=== PATIENT | male | born 1965 | race Caucasian/White ===

== ENCOUNTER 2025-01-01 12:19 | Inpatient (IN) ==
--- NOTE | 2025-01-01 12:36 | ED Physician Documentation ---
History of Present Illness Stated complaint Stated Complaint: FALL/KNEE INJ Chief complaint Chief Complaint: General Additonal information Additional information: This is a very nice 59-year-old gentleman who presents after a fall from a floor truss. 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 He fell to the ground onto his left side hitting his left hip shoulder and left knee. He did not hit his head or lose consciousness. He tried to get up but was unable to bear weight due to pain in the left hip. At rest it is not painful but with weightbearing it is painful. He also states his left arm is painful with attempted range of motion. Patient states that he is generally healthy at baseline, he denies any known medical conditions, is not on any anticoagulation. Last p.o. intake 2 to 3 hours ago. This was a work related injury. [place] Coma Scale Assess Eye opening: Spontaneous Verbal response: Oriented Motor response: Obeys Commands Total score: 15 Meds/Allgy Home Medications Ambulatory Orders Medication Instructions Recorded Confirmed metoprolol succinate PO 01/01/25 Allergies Allergies Allergy/AdvReac Type Severity Reaction Status Date / Time No Known Drug Allergies Allergy Verified 01/01/25 12:28 PFSH Active Problems All Active Problems (Updated 01/01/25 @ 13:37 by JAYY Ventura) Injury resulting from fall from height (Acute) Femoral neck fracture (Acute) Closed left hip fracture (Acute) Medical History Medical History (Updated 01/01/25 @ 13:37 by JAYY Ventura) Hypercholesteremia Hypertension Social History Social History (Updated 01/01/25 @ 12:31 by Deborah Hdz RN) Smoking Status: Never smoker Living arrangement: At home Relationship: Do you feel safe in your home environment?: Yes Suffered physical, verbal, emotional, or financial abuse?: No Frequency: Weekly Substance Use: denies use POLST Patient has POLST: No Exam Exam Vital Signs: Vital Signs x48h Temp Pulse Resp BP Pulse Ox 01/01/25 12:25 36.9 C 54 L 18 128/80 95 Constitutional normal general appearance, no apparent distress, average body habitus, no limitations and alert HENMT normocephalic and head/scalp atraumatic Eyes PERRL and EOMs intact bilaterally Chest inspection of chest normal and palpation of chest normal Respiratory breath sounds equal bilaterally, normal respiratory effort and no retractions Cardiovascular normal heart rate noted, regular rhythm noted and peripheral pulses 2+ throughout Gastrointestinal abdomen normal to inspection, abdomen soft to palpation and nondistended Back/Pelvis spine normal to inspection, no thoracic spine tenderness and no lumbar spine tenderness Extremities There is mild to contusion of the left knee with normal flexion extension, no pain with palpation. There is no pain with palpation of the left hip pain no obvious deformity but he is not able to bear weight as this induces pain. Similarly, no pain with palpation of the left shoulder but unable to raise arm overhead and limited strength in the left shoulder. No clavicle pain Psychiatry oriented x3 Skin skin color normal and no rash Results Vitals Vitals: Vital Signs - 24 hr 01/01/25 12:25 Temperature 36.9 C Temperature Source Temporal Artery Scan Pulse Rate 54 L Respiratory Rate 18 Blood Pressure 128/80 O2 Saturation 95 O2 Source Room air Pain Intensity 4 Oxygen O2 Source Room air Rads (name of study) hip, shoulder, knee xr: Relevant Findings:: Final report received PD Medical Decision Making ED course Complexity details: reviewed results, d/w patient and d/w strategic planning consultant ED course: This is a very nice 59-year-old gentleman who fell from a floor chest today as described in HPI landed onto his left side and presented with left hip knee and shoulder pain. Patient is in no distress on exam, afebrile nontoxic and well- appearing. He has no reproducible pain with palpation however is not able to bear weight in the hip and I was concerned for possible fracture dislocation. We obtained images of the left hip knee and shoulder. There is a impacted fracture of the left femoral neck as well as a fracture of the left shoulder greater tuberosity. There is patellar subluxation he has good range of motion of the knee however. There is a mild cortical irregularity of the lateral femoral condyle only seen on one view. This could be an avulsion injury. Patient this pain is more in the medial left knee, I think this is less likely but would be treated supportively at this point. I have discussed the case with jesse Arevalo, who recommended admission to medical service n.p.o. he would take the patient to the OR this weekend. I have spoken with who very kindly agreed to admit this patient.amal Discharge Plan Discharge Patient Disposition: 66 [facility] DC/Xfer Clinical Impression: Femoral neck fracture, Injury resulting from fall from height
--- NOTE | 2025-01-01 13:35 | XRAY Report ---
PROCEDURE: XR Hip w/Pelvis 2-3V LT INDICATIONS: fall TECHNIQUE: 3 views of the hip were acquired. COMPARISON: None. FINDINGS: Bones: Nondisplaced intertrochanteric lucency seen on AP view. Soft tissues obscure this region on lateral. Soft tissues: No suspicious soft tissue calcifications or masses. IMPRESSION: Poorly visualized but likely nondisplaced intertrochanteric fracture. Reviewed by: Sahnnon Ya MD on 01/01/2025 1:33 PM PDT Approved by: Shannon Ya MD on 01/01/2025 1:33 PM PDT Station ID: [id number]
--- NOTE | 2025-01-01 13:36 | XRAY Report ---
PROCEDURE: XR Knee 3V LT INDICATIONS: fall TECHNIQUE: 3 views of the knee(s) were acquired. COMPARISON: None. FINDINGS: Bones: There is marked lateral subluxation of the patella. Cortical irregularity at the superior aspect of the lateral femoral condyle. Soft tissues: Mild knee joint effusion. No suspicious soft tissue calcifications or masses. IMPRESSION: Marked patellar subluxation without visualized fracture. Mild cortical irregularity at the lateral femoral condyle only seen on one view. Recommend correlation to point tenderness as avulsion injury cannot be excluded. Reviewed by: Shannon Ya MD on 01/01/2025 1:35 PM PDT Approved by: Shannon Ya MD on 01/01/2025 1:35 PM PDT Station ID: [id number]
--- NOTE | 2025-01-01 13:37 | HISTORY & PHYSICAL EXAMINATION ---
Chief Complaint Chief Complaint Chief Complaint: Fall at work History of Present Illness Admitted From Admitted From:: Home History Obtained From Records Reviewed: EMR History obtained from: Patient Exam Limitations: None History of Present Illness HPI Comment/Other: Patient is a 59-year-old male with a history of hypertension, hyperlipidemia who presents after a fall at work. 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 He fell directly on his left side. He immediately felt pain in his left shoulder, left hip, as well as his left knee. Most of the pain is concentrated in his left hip. He was unable to get up. As such, EMS was called. He denies any lightheadedness, dizziness, palpitations, chest pain prior to falling. He has had surgery on his left knee before, an arthroscopy. He has never had any adverse effects to anesthesia. He has no cardiac problems that he knows of. He has between insurances right now so he does not have a primary care provider that he is currently seeing. In the ED, his heart blood pressure was 128/80, heart rate was 54, he was afebrile, saturating 95% on room air, with a respiratory rate of 18. Hip x-ray revealed nondisplaced intertrochanteric fracture of the left side. Knee x-ray shows patellar subluxation without visualized fracture, the lateral femoral condyle shows mild irregularity, avulsion injury cannot be excluded. The shoulder x-ray shows minimally displaced greater tuberosity fracture. Orthopedic surgery was consulted by the emergency room, they are planning to operate. Meds/Allgy Home Medications Ambulatory Orders Medication Instructions Recorded Confirmed metoprolol succinate PO 01/01/25 Allergies Allergies Allergy/AdvReac Type Severity Reaction Status Date / Time No Known Drug Allergies Allergy Verified 01/01/25 12:28 PFSH Active Problems All Active Problems (Updated 01/01/25 @ 14:54 by Мария Espinoza MD) Fracture of greater tuberosity of humerus (Acute) Patellar subluxation (Acute) Injury resulting from fall from height (Acute) Femoral neck fracture (Acute) Closed left hip fracture (Acute) Medical History Medical History (Updated 01/01/25 @ 14:54 by Мария Espinoza MD) Hypercholesteremia Hypertension Social History Social History (Updated 01/01/25 @ 12:31 by Deborah Hdz RN) Smoking Status: Never smoker Living arrangement: At home Relationship: Do you feel safe in your home environment?: Yes Suffered physical, verbal, emotional, or financial abuse?: No Frequency: Weekly Substance Use: denies use POLST Patient has POLST: No Review of Systems Constitutional Denies: Fatigue, Fever, Chills, Malaise, Weakness or Poor appetite Eyes Denies: Pain, Irritation, Blurry vision, Vision loss, Diplopia or Eye discomfort Ears, nose, mouth, and throat Denies: Ear pain, Hearing loss, Tinnitus, Nose bleeds, Nasal discharge, Mouth lesions, Bleeding gums or Neck pain Cardiovascular Denies: Irregular heart rate, chest pain, palpitations, edema, Syncope or shortness of breath with exertion Respiratory Denies: Shortness of breath, Cough, Sputum production or Wheezing Gastrointestinal Denies: Abdominal pain, Abdominal distention, Nausea, Vomiting, Heartburn, Diarrhea or Constipation Genitourinary Denies: Painful urination, Urinary frequency or Urinary urgency Musculoskeletal Reports: Extremity pain, Joint pain, Limited range of motion and Stiffness; Denies: Back pain, Neck pain or Extremity swelling Integumentary/Breast Denies: Rash, Itching, Dryness, Redness or Skin pain Neurological Denies: Headache, General weakness, Weakness in extremities, Numbness in extremities, Abnormal gait or Dizziness Psychiatric Denies: Depression, Anxiety, Mood swings or Panic attacks Endocrine Denies: Excessive urination, Excessive thirst or Fatigue Hematologic/Lymphatic Denies: Anemia, Easy bruising or Easy bleeding Allergic/Immunologic Denies: Hives, Tongue swelling, Facial swelling or Wheezing Exam Exam Vital Signs: Vital Signs x48h Temp Pulse Pulse Resp BP BP Pulse Ox 01/01/25 14:30 98.1 F 68 18 130/81 95 01/01/25 14:01 97.7 F 55 L 16 120/68 97 01/01/25 12:25 98.4 F 54 L 18 128/80 95 Constitutional normal general appearance, no apparent distress, average body habitus and no limitations HENMT normocephalic, head/scalp atraumatic and hearing grossly normal bilaterally Eyes PERRL, EOMs intact bilaterally and conjunctivae normal Neck/C-Spine visual inspection normal, trachea midline and cervical spine nontender Chest inspection of chest normal Respiratory breath sounds equal bilaterally, normal respiratory effort, clear to auscultation bilaterally, no wheezes, no rales and no retractions Cardiovascular normal heart rate noted, regular rhythm noted, no gallop, no rub and no murmur Gastrointestinal abdomen normal to inspection, abdomen soft to palpation, nontender to palpation and normoactive bowel sounds Genitourinary no CVA tenderness and bladder normal to palpation Back/Pelvis spine normal to inspection, no thoracic spine tenderness and no lumbar spine tenderness Extremities Left shoulder with point tenderness, left knee with small abrasion, no effusion noted. Left leg slightly externally rotated. Dorsalis pedis and posterior tibialis pulses felt. Good sensation in bilateral legs. Able to wiggle both toes. Overall range of motion limited due to pain. Neurology no movement abnormality noted and no focal motor deficit noted Psychiatry mental status grossly normal, oriented x3, thought process normal, cooperative and affect normal Skin skin color normal, no rash and no lesions Mild abrasions bilateral legs. Conclusion/Plan Problem List (1) Closed left hip fracture: Plan: Hip x-ray shows likely nondisplaced intertrochanteric fracture of left hip. Continue pain management with Tylenol, oxycodone, morphine as needed for varying levels of pain. Orthopedic surgery consulted, appreciate recommendations. N.p.o. at midnight, regular diet at this time. Qualifiers: Encounter type: initial encounter Qualified Code(s): S72.002A - Fracture of unspecified part of neck of left femur, initial encounter for closed fracture (2) Patellar subluxation: Plan: Knee x-ray shows marked patellar subluxation without fracture. See above. Qualifiers: Encounter type: initial encounter Laterality: left Qualified Code(s): S83.002A - Unspecified subluxation of left patella, initial encounter (3) Fracture of greater tuberosity of humerus: Plan: Shoulder x-ray shows minimally displaced greater tuberosity fracture. See above. Qualifiers: Encounter type: initial encounter Fracture type: closed Fracture alignment: displaced Laterality: left Qualified Code(s): S42.252A - Displaced fracture of greater tuberosity of left humerus, initial encounter for closed fracture Diagnostic Imaging Results Diagnostic Imaging Results: positive Final report reviewed Core Measures Anticipated LOS I expect patient to be DC'd or transferred within 96 hours.: Yes DVT/VTE - Prophylaxis VTE/DVT Device ordered at admit?: Yes VTE/DVT Prophylaxis med ordered at admit?: Yes
--- NOTE | 2025-01-01 13:38 | XRAY Report ---
PROCEDURE: XR Shoulder 2+V LT INDICATIONS: fall TECHNIQUE: 3 views of the shoulder were acquired. COMPARISON: None. FINDINGS: Bones: Minimally displaced lucency through the greater tuberosity. No suspicious bony lesions. No significant effusion. The glenohumeral and acromioclavicular joints are preserved. Soft tissues: No suspicious soft tissue calcifications. The visualized lungs are within normal limits. IMPRESSION: Minimally displaced greater tuberosity fracture. Reviewed by: Shannon Ya MD on 01/01/2025 1:37 PM PDT Approved by: Shannon Ya MD on 01/01/2025 1:37 PM PDT Station ID: [id number]
[2025-01-01] MEDS ORDERED: ONDANSETRON ODT 4 MG TABLET TL PRN (14:26)
[2025-01-01] MEDS: ACETAMINOPHEN 325 MG TABLET PO PRN (14:33)
[2025-01-01] MEDS: SODIUM CHLORIDE FLUSH 0.9% 10 ML SYRINGE IVP PRN (14:34)
--- NOTE | 2025-01-01 15:41 | PHARMACY PROGRESS NOTE ---
Best Possible Medication History Admit Date and Time: 01/01/25 [id number] Home Medications Medication Instructions Recorded Confirmed Type metoprolol succinate 50 mg 50 mg PO DAILY 01/01/25 History tablet,extended release 24 hr rosuvastatin 40 mg tablet 40 mg PO DAILY 01/01/2512/14 History Processed by: Pharmacy Medications reviewed in ED?: No Medication History completed: Yes Patient Interview: Completed Secondary Source(s): Pharmacy records and Insurance records [facility] Statement: As the person ultimately responsible for medication therapy, providers are able to order a medication from an existing home medication list in [facility] via the "Reconcile Routine" prior to Confirmation of that medication by patient support partner. Such practice is discouraged except when the physician, in their clinical judgment, deems that a medical need exists for a medication without regard to previous use.
--- NOTE | 2025-01-01 15:43 | PHARMACY PROGRESS NOTE ---
Best Possible Medication History Admit Date and Time: 01/01/25 [id number] Home Medications Medication Instructions Recorded Confirmed Type metoprolol succinate 50 mg 50 mg PO DAILY 01/01/25 History tablet,extended release 24 hr rosuvastatin 40 mg tablet 40 mg PO DAILY 01/01/2512/14 History Processed by: Pharmacy Medications reviewed in ED?: No Medication History completed: Yes Patient Interview: Completed Secondary Source(s): Pharmacy records and Insurance records [facility] Statement: As the person ultimately responsible for medication therapy, providers are able to order a medication from an existing home medication list in [facility] via the "Reconcile Routine" prior to Confirmation of that medication by technical support professional. Such practice is discouraged except when the physician, in their clinical judgment, deems that a medical need exists for a medication without regard to previous use.
[2025-01-01] MEDS: oxyCODONE 5 MG TABLET PO PRN (17:08)
[2025-01-01] MEDS: SODIUM CHLORIDE FLUSH 0.9% 10 ML SYRINGE IVP SCH (17:11)
[2025-01-01] MEDS: ONDANSETRON 4 MG/2 ML VIAL IVP PRN (18:18)
[2025-01-01] MEDS: MORPHINE 2 MG/ML CARPUJECT IVP PRN (18:20)
[2025-01-02 05:31] LABS: HCT - HEMATOCRIT 44.1 % (42.0-52.0); HGB - HEMOGLOBIN 14.3 g/dL (14.0-18.0); MEAN CORPUSCULAR HEMOGLOBIN 29.4 pg (27.0-31.0); MEAN CORPUSCULAR HGB CONC 32.4 g/dL (32.0-36.0); MEAN CORPUSCULAR VOLUME 90.7 fL (80.0-94.0); MEAN PLATELET VOLUME 9.3 fL (7.4-11.4); RED BLOOD COUNT 4.86 10^6/uL (4.70-6.10); RED CELL DISTRIBUTION WIDTH 12.5 % (12.0-15.0); WHITE BLOOD COUNT 10.6 x10^3/uL (4.8-10.8)
[2025-01-02 05:51] LABS: CALCIUM 8.8 mg/dL (8.5-10.3); CREATININE 0.9 mg/dL (0.6-1.3); MAGNESIUM 2.1 mg/dL (1.7-2.3)
[2025-01-02] MEDS ORDERED: BUPIVACAINE 0.25% PF 30 ML VIAL ONE (10:40)
[2025-01-02] MEDS ORDERED: VANCOMYCIN 1 GM VIAL ONE (10:40)
--- NOTE | 2025-01-02 11:09 | ANESTHESIA PROCEDURE NOTE ---
Pre-Anesthesia VS, & Labs Diagnosis Surgical Diagnosis:: left femoral neck fracture Procedure Procedure: left hemiarthroplasty Vitals Vital Signs: Temp Pulse Resp BP Pulse Ox 36.5 C 73 20 126/76 92 01/02/25 08:26 01/02/25 08:26 01/02/25 08:26 01/02/25 08:26 01/02/25 08:26 NPO NPO: >8 hours Lab Results Current Lab Results: Laboratory Tests 01/02/25 05:05: WBC 10.6, RBC 4.86, Hgb 14.3, Hct 44.1, MCV 90.7, MCH 29.4, MCHC 32.4, RDW 12.5, Plt Count 187, MPV 9.3, Sodium 135, Potassium 4.0, Chloride 103, Carbon Dioxide 25, Anion Gap 7.0, BUN 15, Creatinine 0.9, Estimated GFR (MDRD) 87 L, Glucose 123 H, Calcium 8.8, Magnesium 2.1 01/02/25 05:05 01/02/25 05:05 Meds/Allgy Home Medications Ambulatory Orders Medication Instructions Recorded Confirmed metoprolol succinate 50 mg 50 mg PO DAILY 01/01/25 tablet,extended release 24 hr rosuvastatin 40 mg tablet 40 mg PO DAILY 01/01/2512/14 Allergies Allergies Allergy/AdvReac Type Severity Reaction Status Date / Time No Known Drug Allergies Allergy Verified 01/01/25 12:28 PFS Active Problems All Active Problems (Updated 01/01/25 @ 14:54 by Мария Espinoza MD) Fracture of greater tuberosity of humerus (Acute) Patellar subluxation (Acute) Injury resulting from fall from height (Acute) Femoral neck fracture (Acute) Closed left hip fracture (Acute) Medical History Medical History (Updated 01/01/25 @ 14:54 by Мария Espinoza MD) Hypercholesteremia Hypertension Social History Social History (Updated 01/01/25 @ 12:31 by Deborah Hdz RN) Smoking Status: Never smoker Do you dip or chew tobacco?: No Do you vape?: No Living arrangement: At home Relationship: Level: Independent Do you feel safe in your home environment?: Yes Suffered physical, verbal, emotional, or financial abuse?: No Frequency: Weekly Substance Use: denies use POLST Patient has POLST: No Anesthesia Exam (Expanded) Exam General: Alert, Oriented x3, Cooperative and Mild distress Dental: WNL Mouth Opening: Greater than 4 Fingerbreadths Neck Mobility: Normal Mallampati classification: II Thyromental Distance: 4-6 cm Respiratory: Lungs clear Cardiovascular: Regular rate Exam Exam Vital Signs: Vital Signs x48h Temp Pulse Resp BP Pulse Ox 01/02/25 08:26 36.5 C 73 20 126/76 92 Plan Problem List (1) Closed left hip fracture: Plan: Hip x-ray shows likely nondisplaced intertrochanteric fracture of left hip. Continue pain management with Tylenol, oxycodone, morphine as needed for varying levels of pain. Orthopedic surgery consulted, appreciate recommendations. N.p.o. at midnight, regular diet at this time. Qualifiers: Encounter type: initial encounter Qualified Code(s): S72.002A - Fracture of unspecified part of neck of left femur, initial encounter for closed fracture (2) Patellar subluxation: Plan: Knee x-ray shows marked patellar subluxation without fracture. See above. Qualifiers: Encounter type: initial encounter Laterality: left Qualified Code(s): S83.002A - Unspecified subluxation of left patella, initial encounter (3) Fracture of greater tuberosity of humerus: Plan: Shoulder x-ray shows minimally displaced greater tuberosity fracture. See above. Qualifiers: Encounter type: initial encounter Fracture type: closed Fracture alignment: displaced Laterality: left Qualified Code(s): S42.252A - Displaced fracture of greater tuberosity of left humerus, initial encounter for closed fracture Plan Anesthesia Type: General and Fascia [place] Block Regional Block: Per Surgeon's request for Post Op pain control Consent for Procedure(s) Verified and Reviewed: Yes Code Status: Attempt Resuscitation ASA Classification ASA classification: 2-Mild systemic disease Is this case an emergency?: Yes
--- NOTE | 2025-01-02 11:28 | PROVIDER PROGRESS NOTE ---
Subjective Subjective Subjective: Patient states his pain is pretty well-controlled throughout the night. He denies any lightheadedness, chest pain, dizziness. He has had no fevers or chills. Current Medications Current Medications Current Medications: Current Medications Generic Name Dose Route Start Last Admin Trade Name Freq PRN Reason Stop Dose Admin Acetaminophen 650 mg 01/01/25 14:26 01/02/25 10:59 Acetaminophen 325 Mg Tablet PO 650 mg Q4HR PRN Administration Pain 1 to 4, or Fever Enoxaparin Sodium 40 mg 01/03/25 09:00 Enoxaparin 40 Mg/0.4 Ml Syringe SUBQ DAILY [facility] Morphine Sulfate 2 mg 01/01/25 14:26 01/02/25 10:59 Morphine 2 Mg/Ml Carpuject IVP 2 mg Q2HR PRN Administration Pain 8 to 10 Ondansetron HCl 4 mg 01/01/25 14:26 Ondansetron Odt 4 Mg Tablet TL Q6HR PRN Nausea / Vomiting Ondansetron HCl 4 mg 01/01/25 14:26 01/01/25 18:18 Ondansetron 4 Mg/2 Ml Vial IVP 4 mg Q6HR PRN Administration Nausea / Vomiting Oxycodone HCl 5 mg 01/01/25 14:26 01/01/25 17:08 Oxycodone 5 Mg Tablet PO 5 mg Q4HR PRN Administration Pain 5 to 7 Sodium Chloride 10 ml 01/01/25 14:26 01/01/25 14:34 Sodium Chloride Flush 0.9% 10 Ml Syringe IVP 10 ml PRN PRN Administration NEEDED PER PROVIDER ORDERS Sodium Chloride 10 ml 01/01/25 17:00 01/02/25 08:05 Sodium Chloride Flush 0.9% 10 Ml Syringe IVP 10 ml 0100,[id number],1700 [facility] Administration Objective Vital Signs/Intake & Output Reviewed Vital Signs: Yes Vital Signs: Vital Signs x48h Temp Pulse Resp BP Pulse Ox 01/02/25 08:26 97.7 F 73 20 126/76 92 Intake & Output: Intake & Output 12/30/24 12/31/24 01/01/25 01/02/25 23:59 23:59 23:59 23:59 Intake Total 240 / 240 Output Total 0 / 0 1550 / 1550 Balance 240 / 240 -1550 / -1550 Weight (kg) 92.5 kg Objective General Appearance: positive No acute distress and Alert; negative Anxious Eyes Bilateral: positive Normal inspection, PERRL and EOMI ENT: positive ENT inspection nml, Pharynx nml and No signs of dehydration Neck: positive Nml inspection, Thyroid nml and No JVD Respiratory: positive Chest non-tender, No respiratory distress and Breath sounds nml; negative Wheezes, Rales or Rhonchi Cardiovascular: positive Regular rate & rhythm, No murmur and No gallop; negative Tachycardia or Systolic murmur Abdomen: positive Non-tender, No organomegaly and No distention; negative Guarding or Splenomegaly Back: positive Nml inspection; negative CVA tenderness (R) or CVA tenderness (L) Skin: positive Color nml, No rash, Warm and Dry Extremities: positive Non-tender, Nml appearance, No pedal edema and Other (Left shoulder with point tenderness, left knee with small abrasion, no effusion noted. Left leg slightly externally rotated. Dorsalis pedis and posterior tibialis pulses felt. Good sensation in bilateral legs. Able to wiggle both toes. Overall range of motion limited due to pain.) Neurologic/Psychiatric: positive Oriented x3 and Mood/affect nml Lab Results 01/02/25 05:05 01/02/25 05:05 Other Labs: Lab Results x24hrs 01/02/25 Range/Units 05:05 WBC 10.6 (4.8-10.8) x10^3/uL RBC 4.86 (4.70-6.10) 10^6/uL Hgb 14.3 (14.0-18.0) g/dL Hct 44.1 (42.0-52.0) % MCV 90.7 (80.0-94.0) fL MCH 29.4 (27.0-31.0) pg MCHC 32.4 (32.0-36.0) g/dL RDW 12.5 (12.0-15.0) % Plt Count 187 (130-450) 10^3/uL MPV 9.3 (7.4-11.4) fL Sodium 135 (135-145) mmol/L Potassium 4.0 (3.5-4.5) mmol/L Chloride 103 (101-111) mmol/L Carbon Dioxide 25 (21-32) mmol/L Anion Gap 7.0 (6-13) BUN 15 (6-20) mg/dL Creatinine 0.9 (0.6-1.3) mg/dL Estimated GFR (MDRD) 87 L (>89) Glucose 123 H (74-104) mg/dL Calcium 8.8 (8.5-10.3) mg/dL Magnesium 2.1 (1.7-2.3) mg/dL Assessment/Plan Problem List (1) Closed left hip fracture: Impression: Hip x-ray shows likely nondisplaced intertrochanteric fracture of left hip. Continue pain management with Tylenol, oxycodone, morphine as needed for varying levels of pain. Orthopedic surgery consulted, plan for surgery today. PT evaluation to be completed tomorrow. Qualifiers: Encounter type: initial encounter Qualified Code(s): S72.002A - Fracture of unspecified part of neck of left femur, initial encounter for closed fracture (2) Patellar subluxation: Impression: Knee x-ray shows marked patellar subluxation without fracture. See above, orthopedic surgery following. Qualifiers: Encounter type: initial encounter Laterality: left Qualified Code(s): S83.002A - Unspecified subluxation of left patella, initial encounter (3) Fracture of greater tuberosity of humerus: Impression: Shoulder x-ray shows minimally displaced greater tuberosity fracture. Non-operative management with sling in place. Qualifiers: Encounter type: initial encounter Fracture alignment: displaced F racture type: closed Laterality: left Qualified Code(s): S42.252A - Displaced fracture of greater tuberosity of left humerus, initial encounter for closed fracture
[2025-01-02] MEDS ORDERED: PROPOFOL 200 MG/20 ML VIAL IVP ONE (11:41)
[2025-01-02] MEDS ORDERED: ROCURONIUM 50 MG/5 ML VIAL ONE ×2 (11:41→12:54)
[2025-01-02] MEDS ORDERED: MIDAZOLAM 2 MG/2 ML VIAL ONE (11:42)
[2025-01-02] MEDS ORDERED: fentaNYL 100 MCG/2 ML VIAL ONE ×2 (11:42→14:46)
[2025-01-02] MEDS ORDERED: TRANEXAMIC ACID IN NACL 1,000 MG/100 ML BAG IV PRN (12:03)
[2025-01-02] MEDS ORDERED: LACTATED RINGERS 1,000 ML IV PRN (12:03)
[2025-01-02] MEDS ORDERED: ceFAZolin 1 GM VIAL ONE (12:33)
[2025-01-02] MEDS ORDERED: TRANEXAMIC ACID 1,000 MG/10 ML VIAL ONE (12:34)
[2025-01-02] MEDS ORDERED: DEXAMETHASONE 4 MG/ML VIAL ONE ×2 (12:54→13:05)
[2025-01-02] MEDS ORDERED: ONDANSETRON 4 MG/2 ML VIAL ONE ×2 (12:54→14:35)
[2025-01-02] MEDS ORDERED: ROPIVACAINE 0.5% PF 20 ML VIAL ONE (13:04)
[2025-01-02] MEDS ORDERED: METOCLOPRAMIDE 10 MG/2 ML VIAL IVP PRN (13:59)
[2025-01-02] MEDS ORDERED: MORPHINE 2 MG/ML CARPUJECT IVP PRN (13:59)
[2025-01-02] MEDS ORDERED: ePHEDrine 50 MG/ML VIAL IVP PRN (13:59)
[2025-01-02] MEDS ORDERED: NALOXONE 0.4 MG/ML VIAL IVP PRN (13:59)
[2025-01-02] MEDS ORDERED: ATROPINE ABBOJECT 1 MG/10 ML SYRINGE IVP PRN (13:59)
[2025-01-02] MEDS ORDERED: ACETAMINOPHEN 1,000 MG/100 ML 1,000 MG/100 ML BAG IV ONE (14:00)
[2025-01-02] MEDS ORDERED: SUGAMMADEX 200 MG/2 ML VIAL IVP ONE (14:15)
[2025-01-02] MEDS ORDERED: METOPROLOL 5 MG/5 ML VIAL IVP ONE (14:24)
[2025-01-02] MEDS: LACTATED RINGERS 1,000 ML IV SCH (14:25)
[2025-01-02] MEDS: HYDROmorphone 0.5 MG/0.5 ML SYRINGE IVP PRN (14:35)
[2025-01-02] MEDS ORDERED: HYDROmorphone 0.5 MG/0.5 ML SYRINGE ONE ×2 (14:35→14:47)
[2025-01-02] MEDS: ONDANSETRON 4 MG/2 ML VIAL IVP PRN (14:35)
[2025-01-02] MEDS: fentaNYL 100 MCG/2 ML VIAL IVP PRN (14:45)
--- NOTE | 2025-01-02 15:16 | ANESTHESIA POST OP EVALUATION ---
Anesthesia Post Eval Post Anesthesia Eval Vitals: Last Vital Signs Temp 36.3 C L 01/02/25 14:45 Pulse 71 01/02/25 15:05 Resp 13 01/02/25 15:05 BP 161/94 H 01/02/25 15:05 Pulse Ox 96 01/02/25 15:05 CV Function Including HR & BP: Stable Pain Control: Satisfactory Nausea & Vomiting: Negative Mental Status: Baseline Respiratory Status: Airway Patent Hydration Status: Satisfactory Anesthesia Complications: None
[2025-01-02] MEDS: ceFAZolin (2G) 2 GM in SODIUM CHLORIDE 0.9% MINIBAG 100 ML IV ONE (15:39)
[2025-01-02] MEDS: SODIUM CHLORIDE 0.9% 1,000 ML IV SCH (16:06)
[2025-01-02] MEDS: METOPROLOL SUCCINATE 50 MG TABLET PO SCH (16:12)
[2025-01-02] MEDS: DOCUSATE SODIUM 100 MG CAPSULE PO SCH (21:18)
[2025-01-02] MEDS: APIXABAN 2.5 MG TABLET PO SCH (21:19)
[2025-01-02] MEDS: ceFAZolin (2G) 2 GM in SODIUM CHLORIDE 0.9% MINIBAG 100 ML IV SCH (21:25)
[2025-01-03 04:48] LABS: HCT - HEMATOCRIT 35.4 % (42.0-52.0); MEAN CORPUSCULAR HEMOGLOBIN 30.2 pg (27.0-31.0); MEAN CORPUSCULAR HGB CONC 33.9 g/dL (32.0-36.0); MEAN CORPUSCULAR VOLUME 89.2 fL (80.0-94.0); MEAN PLATELET VOLUME 9.5 fL (7.4-11.4); RED BLOOD COUNT 3.97 10^6/uL (4.70-6.10); RED CELL DISTRIBUTION WIDTH 12.2 % (12.0-15.0); WHITE BLOOD COUNT 13.2 x10^3/uL (4.8-10.8)
[2025-01-03 05:08] LABS: CALCIUM 8.3 mg/dL (8.5-10.3); CREATININE 0.9 mg/dL (0.6-1.3); MAGNESIUM 2.1 mg/dL (1.7-2.3); POTASSIUM 4.2 mmol/L (3.5-4.5)
[2025-01-03] MEDS ORDERED: ENOXAPARIN 40 MG/0.4 ML SYRINGE SUBQ SCH (09:00)
--- NOTE | 2025-01-03 09:25 | XRAY Report ---
PROCEDURE: XR Hip w/Pelvis 1V LT INDICATIONS: post operative imaging TECHNIQUE: AP pelvis with lateral view(s) of the hip(s). COMPARISON: None. FINDINGS/IMPRESSION: Left ANAIS hardware shows the femoral head component is symmetrically well seated within the acetabular component. There is no periprosthetic fracture. Postsurgical emphysema/edema and skin ebenezer are shown. Reviewed by: Mirna Duarte MD on 01/03/2025 8:23 AM JANNETH Approved by: Mirna Duarte MD on 01/03/2025 8:23 AM JANNETH Station ID: [id number]
--- NOTE | 2025-01-03 09:50 | OPERATIVE REPORT ---
Operative Report General Admit Date: 01/01/25 Procedure Data: Operation Date: 01/02/25 09:00 Proposed Procedures p Hip Hemiprosthesis(Left) - Dileep Gaviria DO Actual Procedures p Hip Hemiprosthesis(Left) - Dileep Gaviria, Anesthesia Type General Case Staff Anesthesia Provider: Nayeli Pollock Assisting Provider: Nayana Graham Rep: CHICA SHELTON - BIOMET. Case Times Into Recovery: 01/02/25 14:26 Procedure Start: 01/02/25 12:44 Procedure End: 01/02/25 14:06 Time out: 01/02/25 12:43 Implants HEAD COCR 28MM -6 [id number] Pre-Op Diagnosis: Left hip hemiarthroplasty Post Op Diagnosis: Left hip hemiarthroplasty Procedure Note Estimated Blood Loss (ml): 100 Indications: Left hip hemiarthroplasty Complications: None Other Other Information/Narrative: The patient was taken to the operative suite and under forgoing general anesthetic was placed in the lateral recumbent position with the left hip exposed the left hip was prepped and draped in the usual sterile fashion approximately 15 cm incision was made centered over the greater trochanter and dissection was taken down to the tensor fascia adriel the tensor fascia adriel was incised longitudinally and the Charnley was put in place we identified the gluteus medius and minimus and elevated the anterior half off of its insertion site on the greater troches. We then could identify the capsule the patient did have quite a thick capsule so we did an anterior capsulectomy to get better access to the joint we then could see the fracture very easily I measured approximately 6 to 7 mm above the lesser trochanter and I freshened up the neck fracture with the femoral neck cut in order to better place the prosthesis. It should be noted that there was a crack that went down to the lesser troches but we were careful to be cognizant of this throughout the entire case. Once we gain access to the fracture site we were able to put the corkscrew into the femoral head and get it out with the skin without any problem there were just a couple of broken pieces in the acetabulum and we removed any loose pieces and we did a thorough irrigation we then measured the head to be about 57 mm and we did not have a 57 mm trial but we had 56 and 5856 felt excellent I did not try the 58 and I knew 57 would work just fine so that was good and BR head size we then started with concentric broaching in the femur first with the box osteotome then the canal finder and then the lateralizer and then we started with a size 4 broach the size 4 broach went up to a size 13 and that was the size we put in. Standard offset. We then measured the different neck lengths and -6 was found to be the most stable so we put in a -6 neck length with the 57 mm head we assembled it put it onto the stem reduced the hip and it was found to be excellent length excellent stability we then did a thorough irrigation and we drilled 3 holes through the greater trochanter and so the gluteus medius and minimus back down to its insertion site on the greater troches. We oversewed this with a #1 Vicryl we then sewed the tensor fascia adriel with strata fix suture the subcu with a 2-0 Vicryl the skin was closed with ebenezer a sterile dressing was applied and the patient was awakened and transferred stable to recovery room
--- NOTE | 2025-01-03 10:12 | HISTORY & PHYSICAL EXAMINATION ---
History of Present Illness Admitted From Admitted From:: The emergency room History of Present Illness HPI Comment/Other: The patient states that he has left hip pain and left shoulder pain after falling off of a truss and landing on his left side. He was seen in the emergency room and he was diagnosed with a displaced femoral neck fracture as well as a nondisplaced proximal humeral greater tuberosity fracture. The patient states that he is unable to lift the leg leg and he has had pain in the groin area no numbness or tingling and no other complaints with regards to his shoulder he has pain on the outside and top aspect of the shoulder and he is unable to lift the just secondary to the pain. Colonoscopy Questionnaire In the last 30 days have you experienced these symptoms? PFSH Active Problems All Active Problems (Updated 01/01/25 @ 14:54 by Мария Espinoza MD) Fracture of greater tuberosity of humerus (Acute) Patellar subluxation (Acute) Injury resulting from fall from height (Acute) Femoral neck fracture (Acute) Closed left hip fracture (Acute) Medical History Medical History (Updated 01/01/25 @ 14:54 by Мария Espinoza MD) Hypercholesteremia Hypertension Social History Social History (Updated 01/01/25 @ 12:31 by Deborah Hdz RN) Smoking Status: Never smoker Do you dip or chew tobacco?: No Do you vape?: No Living arrangement: At home Relationship: Level: Independent Do you feel safe in your home environment?: Yes Suffered physical, verbal, emotional, or financial abuse?: No Frequency: Weekly Substance Use: denies use POLST Patient has POLST: No Meds/Allgy Home Medications Ambulatory Orders Medication Instructions Recorded Confirmed metoprolol succinate 50 mg 50 mg PO DAILY 01/01/25 tablet,extended release 24 hr rosuvastatin 40 mg tablet 40 mg PO DAILY 01/01/2512/14 Allergies Allergies Allergy/AdvReac Type Severity Reaction Status Date / Time No Known Drug Allergies Allergy Verified 01/01/25 12:28 Results Lab Results 01/03/25 04:21 01/03/25 04:21 Other Lab Results: Lab Results x24hrs 01/03/25 01/03/25 Range/Units 07:53 04:21 WBC 13.2 H (4.8-10.8) x10^3/uL RBC 3.97 L (4.70-6.10) 10^6/uL Hgb 12.0 L (14.0-18.0) g/dL Hct 35.4 L (42.0-52.0) % MCV 89.2 (80.0-94.0) fL MCH 30.2 (27.0-31.0) pg MCHC 33.9 (32.0-36.0) g/dL RDW 12.2 (12.0-15.0) % Plt Count 155 (130-450) 10^3/uL MPV 9.5 (7.4-11.4) fL Sodium 136 (135-145) mmol/L Potassium 4.2 (3.5-4.5) mmol/L Chloride 105 (101-111) mmol/L Carbon Dioxide 24 (21-32) mmol/L Anion Gap 7.0 (6-13) BUN 13 (6-20) mg/dL Creatinine 0.9 (0.6-1.3) mg/dL Estimated GFR (MDRD) 87 L (>89) Glucose 154 H (74-104) mg/dL POC Whole Bld Glucose 127 (70-100) mg/dL Calcium 8.3 L (8.5-10.3) mg/dL Magnesium 2.1 (1.7-2.3) mg/dL Exam Exam Vital Signs: Vital Signs x48h Temp Pulse Resp BP Pulse Ox 01/03/25 08:00 37.1 C 70 16 121/68 95 01/03/25 05:43 37.0 C 66 16 154/80 H 97 01/03/25 03:00 36.6 C 62 17 136/66 H 93 Examination directed towards the left lower extremity reveals sensation to be intact he has good distal pulses the patient is unable to do a straight leg raise test secondary to the fracture.The left shoulder is in a sling and I did not remove it from the sling and I did not check range of motion secondary to the location of the fracture and that is the insertion site of the supraspinatus and I do not want to further displace and so his motion was not tested.He has good distal pulses and good sensation throughout the left upper extremity. Impression/Plan Problem List (1) Closed left hip fracture: Plan: With regards to the left hip he does have a displaced fracture and I have discussed the treatment options and I have recommended a left hip hemiarthroplasty and he agrees with this and we are going to go ahead and do this on Saturday morning. Qualifiers: Encounter type: initial encounter Qualified Code(s): S72.002A - Fracture of unspecified part of neck of left femur, initial encounter for closed fracture (2) Patellar subluxation: Qualifiers: Encounter type: initial encounter Laterality: left Qualified Code(s): S83.002A - Unspecified subluxation of left patella, initial encounter (3) Fracture of greater tuberosity of humerus: Plan: We are going to treat the greater tuberosity of the humerus fracture in a sling. Qualifiers: Encounter type: initial encounter Fracture type: closed Fracture alignment: displaced Laterality: left Qualified Code(s): S42.252A - Displaced fracture of greater tuberosity of left humerus, initial encounter for closed fracture
--- NOTE | 2025-01-03 10:14 | POST OP PROGRESS NOTE ---
Subjective General Admit Date: 01/01/25 Other Other Information/Narrative: The patient is doing well and feels well but he has not had physical therapy as of yet. Ortho Surgical Progress Note Problem List Discharge Instructions: If the patient does well with physical therapy I see no reason why he cannot be discharged today so we will wait full the physical therapy to be completed and assess his ability to leave. Exam Exam Vital Signs: Vital Signs x48h Temp Pulse Resp BP Pulse Ox 01/03/25 08:00 37.1 C 70 16 121/68 95 01/03/25 05:43 37.0 C 66 16 154/80 H 97 01/03/25 03:00 36.6 C 62 17 136/66 H 93 The dressing is clean dry and intact there is no signs and symptoms of any infection.
[2025-01-03] MEDS: METOPROLOL SUCCINATE 50 MG TABLET PO SCH (11:05)
--- NOTE | 2025-01-03 16:24 | PT Plan of Care ---
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 He is WBAT on the L LE and NWB through the L shoulder. Please see chart for complete medical hx. The pt was received resting comfortably supine in bed while finishing his lunch and presented today with fear avoidance/guarding during all active motion of his L LE, decreased L UE and LE strength, decreased activity tolerance, impaired standing balance, and increased pain which limited his tolerance with functional mobility. His overall tolerance throughout this assessment was limited by weakness, fatigue, and pain. At this time recommend continued skilled PT intervention while in the acute setting and DC to home with therapy for further rehab once pt medically stable. This plan was discussed with the pt and his , they were both in agreement with this. He was education on s/s of an infection and of a DVT, he voiced an understanding of this education. At the end of the session the pt was sitting up in a chair with call light in reach, chair alarm in place and on, and all needs met. RN, NEEDLE CONTROL CHENILLER, and updated on pt's status and DC rec. PATIENT/FAMILY GOALS Patient/Family Goals: To be able to walk without an AD GOALS Improve supine to sit to:: Modified Independent Improve sit to stand to:: Modified Independent Improve pivot transfer ability to:: Modified Independent Improve sit to supine to:: Modified Independent Improve gait ability to:: Ind Advance Assistive Device to:: Crutches Increase distance walked to (in feet):: 25 PLAN Frequency: 1-2x/day Duration: Until discharge DISCHARGE RECOMMENDATIONS Discharge Location: Previous Living Situation Support/Services Needed: Home Health P.T. DC Equipment Recommended: Crutches Transport Needs at Discharge: Personal vehicle
--- NOTE | 2025-01-03 17:04 | PROVIDER PROGRESS NOTE ---
Subjective Prog Note Date Prog Note Date: 01/03/25 Prog Note Time: 17:01 Subjective Pt reports feeling: Improved Subjective: He is postop day #1. He is wondering what his limitations are going to be. I really discussed the cause of his fall. He said it was a simple mechanical fall. He was on a truss working 9 feet above ground. Went through a piece of wood and it did not hold him and he fell to the ground. He had no loss of consciousness. No antecedent change in mentation. The left shoulder is nonoperative at this time. It is in a sling. His left patella is subluxed. He lives with his and kids in a single level home. His son is 20 years old. He has 2 stairs in the house without rails. Already has a raised toilet seat. Completely independent, works full-time. Morning work with PT he had guarding and grimacing and repositioning and using ice and resting help. Throughout his PT session he had left moderate hip and left shoulder pain. He needed minimal assist to go from supine to sitting at the edge of the bed. He just required extra time to do it. PT helped him move his left leg and cued him for getting that leg off the bed safely. He was able to go from sit to stand with contact-guard assist. She required minimal assist to get back in bed. Able to use crutches. He used an antalgic gait because decreased range of motion on the left leg. He really could not use his left shoulder because of the restrictions implemented to the left humeral fracture. Physical therapy feels that he can go home. Pain is the main limiting factor for him right now. Diet and fatigue. They would like to continue skilled PT while he is here and discharged to home with home health therapy for rehab. PT discussed this with the patient and the and they are both in agreement with this. The only other complaint he has right now is recurrent urinary retention. He has had to be straight cathed twice. Current Medications Current Medications Current Medications: Current Medications Generic Name Dose Route Start Last Admin Trade Name Freq PRN Reason Stop Dose Admin Acetaminophen 650 mg 01/01/25 14:26 01/03/25 13:32 Acetaminophen 325 Mg Tablet PO 650 mg Q4HR PRN Administration Pain 1 to 4, or Fever Apixaban 2.5 mg 01/02/25 21:00 01/03/25 08:25 Apixaban 2.5 Mg Tablet PO 2.5 mg BID WIL Administration Docusate Sodium 100 mg 01/02/25 21:00 01/03/25 08:25 Docusate Sodium 100 Mg Capsule PO 100 mg BID WIL Administration Metoprolol Succinate 50 mg 01/02/25 15:05 01/03/25 08:25 Metoprolol Succinate 50 Mg Tablet PO 50 mg DAILY WIL Administration Morphine Sulfate 2 mg 01/01/25 14:26 01/02/25 17:46 Morphine 2 Mg/Ml Carpuject IVP 2 mg Q2HR PRN Administration Pain 8 to 10 Ondansetron HCl 4 mg 01/01/25 14:26 Ondansetron Odt 4 Mg Tablet TL Q6HR PRN Nausea / Vomiting Ondansetron HCl 4 mg 01/01/25 14:26 01/01/25 18:18 Ondansetron 4 Mg/2 Ml Vial IVP 4 mg Q6HR PRN Administration Nausea / Vomiting Oxycodone HCl 5 mg 01/01/25 14:26 01/03/25 15:38 Oxycodone 5 Mg Tablet PO 5 mg Q4HR PRN Administration Pain 5 to 7 Sodium Chloride 10 ml 01/01/25 14:26 01/01/25 14:34 Sodium Chloride Flush 0.9% 10 Ml Syringe IVP 10 ml PRN PRN Administration NEEDED PER PROVIDER ORDERS Sodium Chloride 10 ml 01/01/25 17:00 01/03/25 08:25 Sodium Chloride Flush 0.9% 10 Ml Syringe IVP 10 ml 0100,0900,1700 WIL Administration Objective Vital Signs/Intake & Output Reviewed Vital Signs: Yes Vital Signs: Vital Signs x48h Temp Pulse Pulse Pulse Pulse Resp BP 01/03/25 14:00 37.2 C 69 16 128/67 01/03/25 12:50 86 102 H 76 BP BP BP Pulse Ox 01/03/25 14:00 96 01/03/25 12:50 111/78 103/73 122/72 Intake & Output: Intake & Output 12/31/24 01/01/25 01/02/25 01/03/25 23:59 23:59 23:59 23:59 Intake Total 240 / 240 1395 / 1395 2590 / 2590 Output Total 0 / 0 3785 / 3785 4300 / 4300 Balance 240 / 240 -2390 / -2390 -1710 / -1710 Weight (kg) 92.5 kg Objective General Appearance: positive No acute distress, Alert and Other (Quiet, muted affect) Eyes Bilateral: positive PERRL and EOMI ENT: positive ENT inspection nml and No signs of dehydration Neck: positive No JVD; negative Stiff neck Respiratory: positive Chest non-tender, No respiratory distress and Breath sounds nml Cardiovascular: positive Regular rate & rhythm, No murmur and No gallop Abdomen: positive Non-tender, No organomegaly and Nml bowel sounds Skin: positive Color nml, No rash and Dry Extremities: positive Other (Left arm in a sling with reduced range of motion. Left hip with surgical site covered. No surrounding redness or heat. Minimal trace ankle edema on the left.) Neurologic/Psychiatric: positive Oriented x3, CN's nml (2-12) and Motor nml Lab Results 01/03/25 04:21 01/03/25 04:21 Other Labs: Lab Results x24hrs 01/03/25 01/03/25 Range/Units 07:53 04:21 WBC 13.2 H (4.8-10.8) x10^3/uL RBC 3.97 L (4.70-6.10) 10^6/uL Hgb 12.0 L (14.0-18.0) g/dL Hct 35.4 L (42.0-52.0) % MCV 89.2 (80.0-94.0) fL MCH 30.2 (27.0-31.0) pg MCHC 33.9 (32.0-36.0) g/dL RDW 12.2 (12.0-15.0) % Plt Count 155 (130-450) 10^3/uL MPV 9.5 (7.4-11.4) fL Sodium 136 (135-145) mmol/L Potassium 4.2 (3.5-4.5) mmol/L Chloride 105 (101-111) mmol/L Carbon Dioxide 24 (21-32) mmol/L Anion Gap 7.0 (6-13) BUN 13 (6-20) mg/dL Creatinine 0.9 (0.6-1.3) mg/dL Estimated GFR (MDRD) 87 L (>89) Glucose 154 H (74-104) mg/dL POC Whole Bld Glucose 127 (70-100) mg/dL Calcium 8.3 L (8.5-10.3) mg/dL Magnesium 2.1 (1.7-2.3) mg/dL Assessment/Plan Problem List (1) Closed left hip fracture: Impression: Hip x-ray shows likely nondisplaced intertrochanteric fracture of left hip.Left hip Parker prosthesis done January 02. Today's postop day #1. Mild acute blood loss anemia. Hemoglobin was 14.3 on admission and is 12.0 today. No transfusion needed. DVT prophylaxis is with apixaban 2.5 mg p.o. twice daily. That will be for 2 weeks. PT has seen him. Able to go home with home health. However his urinary retention is was keeping him in the hospital. Continue pain management with Tylenol, oxycodone, morphine as needed for varying levels of pain. - I will order home health RN, PT, OT and he will need crutches to go home on Qualifiers: Encounter type: initial encounter Qualified Code(s): S72.002A - Fracture of unspecified part of neck of left femur, initial encounter for closed fracture (2) Urinary retention: Impression: Resulting in 2 straight caths overnight. I have started him on Flomax. He tells me that a lot of the problem is not being able to get out of bed and he cannot pee by being in bed. So we are going to get him up today. After voiding 500 cc, he still had 400 cc in his bladder. I am hoping this can be resolved by tomorrow and he can go home tomorrow. If he still has problems with voiding, he may have to go home with a Christianson catheter, temporarily. (3) Patellar subluxation: Impression: Knee x-ray shows marked patellar subluxation without fracture. See above, orthopedic surgery following. Qualifiers: Encounter type: initial encounter Laterality: left Qualified Code(s): S83.002A - Unspecified subluxation of left patella, initial encounter (4) Fracture of greater tuberosity of humerus: Impression: Shoulder x-ray shows minimally displaced greater tuberosity fracture. Non-operative management with sling in place. Qualifiers: Encounter type: initial encounter Fracture type: closed Fracture alignment: displaced Laterality: left Qualified Code(s): S42.252A - Displaced fracture of greater tuberosity of left humerus, initial encounter for closed fracture
[2025-01-03] MEDS: TAMSULOSIN 0.4 MG CAPSULE PO SCH (21:35)
--- NOTE | 2025-01-04 08:27 | Discharge Summary ---
"Discharge Summary Admit Date: 01/01/25 Discharge Date: 01/04/25 Discharging Provider: Dr. Мария Espinoza Primary Care Provider: Remy PCP Code Status: Attempt Resuscitation Discharge Facility Name: Home with Home Health DIAGNOSES Admission Diagnoses: Close left hip fracture Patellar subluxation Fracture of greater tuberosity of humerus Discharge Diagnoses with Status of Each Condition: Closed left hip fractureHemi prosthesis done January 02. DVT prophylaxis with apixaban 2.5 mg twice daily for 4 weeks. PT/OT recommend home health. Urinary retentionresolved. Christianson catheter was placed overnight, and removed this morning. He urinated on his own while here. Patellar subluxationcontinue PT. Fracture of greater tuberosity of humerusnonoperative management with sling in place. HPI History of Present Illness: Patient is a 59-year-old male with a history of hypertension, hyperlipidemia who presents after a fall at work. 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 He fell directly on his left side. He immediately felt pain in his left shoulder, left hip, as well as his left knee. Most of the pain is concentrated in his left hip. He was unable to get up. As such, EMS was called. He denies any lightheadedness, dizziness, palpitations, chest pain prior to falling. He has had surgery on his left knee before, an arthroscopy. He has never had any adverse effects to anesthesia. He has no cardiac problems that he knows of. He has between insurances right now so he does not have a primary care provider that he is currently seeing. In the ED, his heart blood pressure was 128/80, heart rate was 54, he was afebrile, saturating 95% on room air, with a respiratory rate of 18. Hip x-ray revealed nondisplaced intertrochanteric fracture of the left side. Knee x-ray shows patellar subluxation without visualized fracture, the lateral femoral condyle shows mild irregularity, avulsion injury cannot be excluded. The shoulder x-ray shows minimally displaced greater tuberosity fracture. Orthopedic surgery was consulted by the emergency room, they are planning to operate. CONSULTS | PROCEDURES Consultations: Orthopedic surgery Procedures: Knee x-ray, shoulder x-ray, hip x-ray, hemiprosthesis of L hip HOSPITAL COURSE Hospital Course: Patient 59-year-old male who presented after a fall at work. Imaging revealed a nondisplaced intertrochanteric fracture of the left side, patellar subluxation, as well as a minimally displaced greater tuberosity fracture. Orthopedic surgery was consulted, and they completed a Parker prosthesis. PT/OT evaluated the patient, and recommended SNF on discharge. While he was here, he had an episode of acute urinary retention. He was started on Flomax, which will be continued on discharge. He required a Christianson catheter for about 12 hours, but this was removed and he was able to urinate on his own. He will also be sent home on Eliquis 2.5 mg twice daily for DVT prophylaxis. He was advised extensively to follow-up with the primary care provider. He has an appointment set up with a new one at home. He was advised to bring up his depressed mood, and he is interested in starting an antidepressant as well. ALLERGIES Allergies Allergy/AdvReac Type Severity Reaction Status Date / Time No Known Drug Allergies Allergy Verified 01/01/25 12:28 MEDICATIONS Ambulatory Orders Medication Instructions Recorded Confirmed metoprolol succinate 50 mg 50 mg PO DAILY 01/01/25 tablet,extended release 24 hr rosuvastatin 40 mg tablet 40 mg PO DAILY 01/01/2512/14 apixaban 2.5 mg tablet (Eliquis) 2.5 mg PO BID 4 weeks #56 tabs 01/04/25 oxycodone 5 mg tablet 5 mg PO Q4HR PRN Pain 5 to 7 3 01/04/25 days #14 tabs tamsulosin 0.4 mg capsule 0.4 mg PO DAILY #30 caps PHYSICAL EXAM AT DISCHARGE Vital Signs: Vital Signs x48h Temp Pulse Resp BP Pulse Ox 01/04/25 16:43 98.1 F 84 20 115/77 95 01/04/25 15:18 98.8 F 87 16 118/69 01/04/25 14:00 98.8 F 87 16 118/69 General Appearance: positive No acute distress, Alert and Other (Quiet, muted affect) Eyes Bilateral: positive PERRL and EOMI ENT: positive ENT inspection nml and No signs of dehydration Neck: positive No JVD; negative Stiff neck Respiratory: positive Chest non-tender, No respiratory distress and Breath sounds nml Cardiovascular: positive Regular rate & rhythm, No murmur and No gallop Abdomen: positive Non-tender, No organomegaly and Nml bowel sounds Skin: positive Color nml, No rash and Dry Extremities: positive Other (Left arm in a sling with reduced range of motion. Left hip with surgical site covered. No surrounding redness or heat. Minimal trace ankle edema on the left.) Neurologic/Psychiatric: positive Oriented x3, CN's nml (2-12) and Motor nml LABS 01/03/25 04:21 01/03/25 04:21 FOLLOW UP Follow Up: Follow up with PCP. Follow up with orthopedics. TIME SPENT Time Spent in Discharge (Minutes): 35 Discharge Plan Discharge Patient Disposition: Home Health Service Prescriptions: New oxycodone 5 mg Tablet 5 mg PO Q4HR PRN (Reason: Pain 5 to 7) 3 Days Qty: 14 0RF tamsulosin 0.4 mg capsule 0.4 mg PO DAILY Qty: 30 0RF Eliquis 2.5 mg tablet 2.5 mg PO BID 28 Days Qty: 56 0RF Continued metoprolol succinate 50 mg tablet extended release 24 hr 50 mg PO DAILY Patient Comments: take 1 tablet by mouth once daily rosuvastatin 40 mg tablet 40 mg PO DAILY Activity Restrictions: Activity as Tolerated Activity Restrictions/Additional Instructions: SURGICAL PROCEDURE: Left Hip Hemiarthroplasty ACTIVITY INSTRUCTIONS - You are weight bearing as tolerated to the left lower extremity with a front wheeled walker at all times. We encourage active movement of the toes every hour while awake to prevent stiffness. - You must be cleared by your orthopedic provider before operating a vehicle. DRESSING CARE - You have a waterproof mepilex dressing in place. Leave the dressing in place until your follow up in the orthopedic clinic. If the dressing is saturated with blood you may remove the dressing and call our office for the dressing to be replaced. You will see skin ebenezer about your incision. - Keep extremity elevated to the level of the heart to reduce swelling. You can use ice on top of the splint to reduce pain and swelling of the extremity. - If you notice fever, chills, redness, excessive drainage or bleeding, a sharp increase in pain that persists after taking pain medication, pain in your calf muscles, chest pain or trouble breathing please unwrap the dressing and investigate. Then call the office with findings for further guidance. If it is after regular clinic hours, please seek care in the emergency department. - In the rare case of any severe chest pain and trouble breathing, seek immediate care, do not delay for a call to the clinic. - You may shower with the dressing in place. If the dressing becomes saturated please call our office for further guidance. POST-OPERATIVE INSTRUCTIONS - Use ice to the affected extremity for 15 minutes increments as needed - Follow up with the orthopedic clinic in 9 days. Call our office at [phone] with any concerns. - Take 2.5 mg of apixiban twice daily for 4 weeks to prevent blood clots. Diet: Regular Health Concerns: SURGICAL PROCEDURE: Left Hip Hemiarthroplasty ACTIVITY INSTRUCTIONS - You are weight bearing as tolerated to the left lower extremity with a front wheeled walker at all times. We encourage active movement of the toes every hour while awake to prevent stiffness. - You must be cleared by your orthopedic provider before operating a vehicle. DRESSING CARE - You have a waterproof mepilex dressing in place. Leave the dressing in place until your follow up in the orthopedic clinic. If the dressing is saturated with blood you may remove the dressing and call our office for the dressing to be replaced. You will see skin ebenezer about your incision. - Keep extremity elevated to the level of the heart to reduce swelling. You can use ice on top of the splint to reduce pain and swelling of the extremity. - If you notice fever, chills, redness, excessive drainage or bleeding, a sharp increase in pain that persists after taking pain medication, pain in your calf muscles, chest pain or trouble breathing please unwrap the dressing and investigate. Then call the office with findings for further guidance. If it is after regular clinic hours, please seek care in the emergency department. - In the rare case of any severe chest pain and trouble breathing, seek immediate care, do not delay for a call to the clinic. - You may shower with the dressing in place. If the dressing becomes saturated please call our office for further guidance. POST-OPERATIVE INSTRUCTIONS - Use ice to the affected extremity for 15 minutes increments as needed - Follow up with the orthopedic clinic in 9 days. Call our office at [phone] with any concerns. - Take 2.5 mg of apixiban twice daily for 4 weeks to prevent blood clots. Print Language: Thai Patient Instructions: Surg Dc Stand Alone Forms: PCP List"
[2025-01-04 17:07] VITALS: BP 115/77; TEMP 98.1; O2SAT 95
== END 2025-01-04 16:45 | disposition home health service (06) | DRG 522 ==
LOC: ED 12:19 → MS3 13:47
PROVIDERS: ADMIT Internal Medicine; ATTEND Internal Medicine
PROC: HEMIHIP (2025-01-02 09:00)
DX: Z79.899 Other long term (current) drug therapy; Y92.9 Unspecified place or not applicable; I10 Essential (primary) hypertension; W17.89XA Other fall from one level to another, initial encounter; S42.252A Displaced fracture of greater tuberosity of left humerus, initial encounter for closed fracture; R33.9 Retention of urine, unspecified; S83.002A Unspecified subluxation of left patella, initial encounter; S72.142A Displaced intertrochanteric fracture of left femur, initial encounter for closed fracture; E78.00 Pure hypercholesterolemia, unspecified; Y93.H3 Activity, building and construction; Y99.0 Civilian activity done for income or pay